=== PATIENT | female | born 2000 | race Caucasian/White ===

== ENCOUNTER 2024-02-10 13:11 | Emergency (ER) | payer MEDICAID, SELFPAY ==
[2024-02-10 13:21] VITALS: BP 118/77; PULSE 99; RESP 16; TEMP 37.2; O2SAT 100; BMI 29.2
--- NOTE | 2024-02-10 13:39 | EDNOTE_ITS ---
ED Dental RME/HPI General Chief complaint: Dental/Oral/Throat Stated complaint: TOOTHACHE, RIGHT LOWER FACE SWOLLEN Time Seen by Provider: 02/10/24 13:38 Source: patient Arrival date/time: 02/10/24 13:11 23-year-old female presents emergency department complaining of right tooth infection and right cheek swelling. Patient denies any chills, fever, nausea vomiting, cough, shortness of breath, or any other associated symptom. Mode of arrival: ambulatory Limitations: no limitations Related Data Previous Rx's ?Medication ?Instructions ?Recorded ibuprofen 800 mg tablet (IBU) 800 mg PO Q8H #20 tabs 01/23/24 amoxicillin 875 mg-potassium 1 tab PO BID 7 days #14 tabs 02/10/24 clavulanate 125 mg tablet Allergies Allergy/AdvReac Type Severity Reaction Status Date / Time No Known Allergies Allergy Verified 02/10/24 13:14 Review of Systems Review of Systems Systems Reviewed: All systems reviewed, normal except as documented Constitutional Constitutional: Reports system reviewed and no additional complaints, except as documented, Denies body ache(s), Denies chills and Denies fever(s) Eyes Eyes: Reports system reviewed and no additional complaints, except as documented and Denies change in vision ENT Ears, Nose, Mouth, and Throat: Reports system reviewed and no additional complaints, except as documented, Denies disequilibrium, Denies dizziness, Reports mouth pain, Denies sore throat, Denies vertigo and Reports other (Tooth pain, jaw swelling) Cardiovascular Cardiovascular: Reports system reviewed and no additional complaints, except as documented, Denies chest pain and Denies dyspnea Respiratory Respiratory: Reports system reviewed and no additional complaints, except as documented, Denies chest congestion, Denies cough and Denies dyspnea Gastrointestinal Gastrointestinal: Reports system reviewed and no additional complaints, except as documented, Denies abdominal pain, Denies nausea and Denies vomiting Musculoskeletal Musculoskeletal: Reports system reviewed and no additional complaints, except as documented, Denies abnormal gait and Denies arthralgias Integumentary/Breasts Skin/Breast: Reports system reviewed and no additional complaints, except as documented, Denies erythema, Denies rash and Denies wounds Neurologic Neurologic: Reports system reviewed and no additional complaints, except as documented, Denies abnormal gait, Denies disequilibrium, Denies dizziness and Denies vertigo Past Medical History Social History SMOKING STATUS: Never smoker ED Exam General Limitations: Present no limitations General appearance: Present alert and in no apparent distress Head Head exam: Present atraumatic Expanded Head Exam Head image: 2 1. Edema Eye Eye exam: Present normal appearance, PERRL and EOMI ENT ENT exam: Present normal exam, normal oropharynx and mucous membranes moist Expanded ENT Exam Mouth exam: Absent drooling, trismus, lip swelling or tongue swelling Teeth exam: Present dental caries Throat exam: Absent tonsillar erythema or tonsillar exudate Neck Neck exam: Present normal inspection, full ROM and trachea midline Chest Chest inspection: Present normal inspection and symmetric chest wall rise Respiratory Respiratory exam: Present normal lung sounds bilaterally Cardiovascular Cardiovascular exam: Present regular rate, normal rhythm and normal heart sounds Abdominal Exam Abdominal exam: Present soft and normal bowel sounds Extremities Exam Extremities exam: Present normal inspection and full ROM Back Exam Back exam: Present normal inspection and full ROM Neurological Exam Neurological exam: Present alert, oriented X3 and CN II-XII intact Psychiatric Psychiatric exam: Present normal affect and normal mood Skin Skin exam: Present warm, dry, intact and normal color Course Quality Measures none Orders Category Date Time Status cefTRIAXone [Rocephin] 1,000 mg Med 02/10/24 13:39 Discontinued Lidocaine 1% 20 ml [Xylocaine 1% 20 ML] 2.1 ml IM X1 Vital Signs Vital signs: Vital Signs Temperature 99.0 F 02/10/24 13:21 Pulse Rate 99 02/10/24 13:21 Respiratory Rate 16 02/10/24 13:21 Blood Pressure 118/77 02/10/24 13:21 Pulse Oximetry (%) 100 02/10/24 13:21 Oxygen Delivery Method Room Air 02/10/24 13:21 100% room air within normal limits Dental / Oral MDM Narrative MDM Narrative:: 23-year-old female presents emergency department complaining of right tooth infection and right cheek swelling. Patient denies any chills, fever, nausea vomiting, cough, shortness of breath, or any other associated symptom. Patient reports has follow-up visit with dentist on Monday. Patient appears nontoxic and hemodynamically stable. Patient in no respiratory distress. Patient given IM Rocephin and discharged home on Augmentin. Instructed to follow-up with dentist as discussed. Instructed to follow-up with primary care provider upon discharge. Instructed to return to emergency department for any worsening symptoms or as needed. Patient data External records reviewed:: [facility] previous records Clinical information provided by:: patient Social determinants that could affect healthcare access:: none Patient has the following chronic illnesses:: N/A How is presenting disease/condition affected by chronic disease/condition?: no chronic disease Evaluation data The following diagnostics were reviewed and interpreted by me:: other (specify) (N/A) Lab and/or radiology exams considered but not ordered:: N/A Interpretation Summary: N/A Medications / Prescriptions Medications or Prescriptions considered but not ordered:: Ordered Medication administrations:: Medication Administration History Discontinued Medications Ceftriaxone Sodium 1,000 mg/ (Lidocaine HCl 2.1 ml) 0 mg IM X1 ONE Stop: 02/10/24 13:40 Last Admin: 02/10/24 14:07 Dose: 1,000 mg Documented By: LEONOR Interpreted by me Consultations Consultation(s) initiated? (list below): No Diagnosis Dental Differential Diagnosis: gingival abscess, dental caries, toothache and dental abscess Most likely diagnosis given after review of the tests above:: Tooth infection Admission Indicated Admission indicated?: not indicated Admission Request Was there a request for admission?: No Disposition Plan Disposition Plan: Discharge Discharge Attestation Discharge Attestation: The patient and all family members were given an opportunity to ask questions and understood the discharge instructions. Discharge instructions specifically effects, indications for sooner follow up or return to the emergency department, and the expected course of current diagnosis. Patient condition: Stable Discharge Plan Plan Patient Disposition: HOME (Self Care) Disposition Comment: Stable Prescriptions/Referrals Prescriptions/Med Rec: New amoxicillin-pot clavulanate 875-125 mg tablet 1 tab PO BID 7 Days Qty: 14 0RF No Action ibuprofen [IBU] 800 mg tablet 800 mg PO Q8H Qty: 20 0RF Problem List Clinical Impression: Infected tooth Patient/Caregiver Discharge Instructions Discharge Activity: activity as tolerated Education Materials: ED Tooth Abscess Additional Instructions: Take medication as prescribed. Follow-up with dentist as discussed on Monday. Follow-up with primary care provider upon discharge. return to emergency department for any worsening symptoms or as needed. Print Language: Emirati Stand Alone Forms: Edith Award Info., Patient Portal Info Letter Attestation Attestation The patient was seen by the midlevel practitioner. I, the co-signing physician, was present during the entire ER visit. While I did not physically examine the patient, I was available for consultation as needed.
[2024-02-10] MEDS: cefTRIAXone 1,000 MG, LIDOCAINE 1% 20 ML 2.1 ML IM (14:07)
== END 2024-02-10 15:01 | disposition home or self-care (01) ==
LOC: SERX 13:51
PROVIDERS: Emergency Provider Emergency Medicine
DX: K04.7 Periapical abscess without sinus (principal)
CPT/HCPCS: 96372; 99283; J0696; J3490